=== PATIENT | female | born 1985 | race Caucasian/White ===

== ENCOUNTER 2022-03-01 14:10 | Emergency (ER) | payer OTHER, SELFPAY ==
[2022-03-01 14:45] VITALS: BP 142/77; PULSE 77; RESP 18; TEMP 36.7; O2SAT 100
--- NOTE | 2022-03-01 14:52 | ED.UPPEXIN ---
HPI - Extremity Injury (Upper) General Chief Complaint: Extremity Injury, Upper Stated Complaint: pain management rt wrist injury pending surgery Time Seen by Provider: 03/01/22 14:52 Source: patient Mode of arrival: ambulatory Limitations: no limitations History of Present Illness HPI narrative: 36-year-old female with reportedly broken right wrist presenting for complaint of wrist pain since injury one week ago. She states she broke the wrist while snowboarding in [facility], was seen in the ER and placed in splint/sling. Given Rx hydrocodone and zofran, also taking motrin. Unable to get into ortho at [facility] until 03/07. Requesting medication for the wrist pain until she can be seen. Denies numbness, tingling or weakness of the fingers or extremity. Rates pain 10/17. Provided dc paperwork. Related Data Home Medications Medication Instructions Recorded Confirmed hydrocodone 5 mg-acetaminophen 325 5 tablet PO PRN PRN Pain 03/01/22 03/01/22 mg tablet ondansetron 4 mg disintegrating 4 mg PO PRN PRN Nausea 03/01/22 03/01/22 tablet Allergies Allergy/AdvReac Type Severity Reaction Status Date / Time No Known Allergies Allergy Verified 03/01/22 14:48 Review of Systems Review of Systems: CONSTITUTIONAL: Denies body aches, fever, chills EYES: Denies visual changes ENT: Denies rhinorrhea, congestion CARDIOVASCULAR: Denies chest pain, palpitations, or edema. RESPIRATORY: Denies cough or dyspnea. GASTROINTESTINAL: Denies abdominal pain, nausea, vomiting, or diarrhea. SKIN: Denies rash, itching, or wounds. MUSCULOSKELETAL: per hpi NEUROLOGIC: Denies headache, numbness, tingling, or weakness. PSYCH: Denies depression or anxiety. All systems reviewed & are unremarkable except as noted in HPI and below PMFSH Comments At time of signature, I have reviewed and agree with nursing past medical, surgical, social and family history unless otherwise noted. Please see nursing chart for further information. There is no relevant family history pertinent to the presenting complaint Exam Narrative: GENERAL: Well-appearing CHEST: Speaks in full sentences. No respiratory distress. HEART: Regular rate and rhythm. Normal and equal peripheral pulses. EXTREMITIES: RUE with sling and splint in place. Fingers with normal strength and sensation. skin warm, dry, pink. Capillary refill less than 3 seconds. SKIN: Warm, dry, no rash. NEURO: Alert and oriented x3. PSYCH: Normal mood and affect Course Course Emergency Course: Patient is aware of diagnosis, understands and agrees to treatment plan. Anticipatory guidance given. Patient agrees to follow-up as directed and is aware of reasons to seek care at the emergency department. Portions of this record may have been created with voice recognition software Level of Care: Express Care Visit Vital Signs Vital signs: Vital Signs Temperature 98.1 F 03/01/22 14:45 Pulse Rate 77 03/01/22 14:45 Respiratory Rate 18 03/01/22 14:45 Blood Pressure 142/77 H 03/01/22 14:45 Pulse Oximetry 100 03/01/22 14:45 Oxygen Delivery Room Air 03/01/22 14:45 Temperature 98.1 F 03/01/22 14:45 Pulse Rate 77 03/01/22 14:45 Respiratory Rate 18 03/01/22 14:45 Blood Pressure 142/77 H 03/01/22 14:45 Pulse Oximetry 100 03/01/22 14:45 Oxygen Delivery Room Air 03/01/22 14:45 Reviewed MDM - Extremity Injury (Upper) MDM Narrative Medical decision making narrative: Patient is informed we do not routinely provide Rx for narcotics. She is advised to contact [facility] for possible consult prior to her scheduled appointment. At this time will provide Rx hydrocodone #7 with ibuprofen. patient is agreeable. Advised supportive measures and signs/symptoms to go to the ER. Pt is appropriate for outpt treatment and f/u. Differential Diagnosis Differential diagnosis: Likely fracture of wrist Discharge Plan Discharge Clinical Impression: Acute wrist pain Patient
== END 2022-03-01 15:14 | disposition home or self-care (01) ==
PROVIDERS: Emergency Provider Nurse Practitioner Family
DX: M25.531 Pain in right wrist (principal)
CPT/HCPCS: 99203; G0463

== ENCOUNTER 2022-05-07 09:00 | Outpatient (RCR) | payer OTHER, SELFPAY ==
--- NOTE | 2022-03-28 09:09 | OTOPEVAL1 ---
Assessment and note entered by Deepak Ashraf, JOHANA/Babatunde, CHT Evaluation Information Assessment Status Evaluation Diagnosis Right distal radius fracture Subjective Information Patient is a right hand dominant female who sustained a distal radius fracture while snowboarding. 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 She has been completing ADL tasks and driving with her left hand. Has been able to do some light tasks such as writing and typing with the right hand. Comes in wearing a removable, custom-fabricated wrist cock up orthosis. Reported Pain Level Additional Pain Score Comments No pain at rest. Tends to get sore at the end of the day. Takes Motrin PRN. Assessment OT Clinical Summary Patient is referred to outpatient hand therapy following a distal radius fracture and ORIF as well as carpal tunnel release on the right UE. She presents with functional limitations due to stiffness, soft tissue tightness, and soreness with movement. Skilled OT indicated to progress HEP, for thermal modalities, manual therapy, and functional therapeutic activities to facilitate optimal functional use of the right UE. Plan of Care Interventions Therapeutic Exercise,Manual Therapy,Therapeutic Activities,Hot Pack/Cold Pack,Paraffin OT Services Indicated Yes Treatment Frequency and 1x/week for 8 weeks Duration These treatments will address the objective and functional deficits as defined above. The patient will be advanced safely and appropriately in order for the patient to progress towards his/her prior level of function. Additional exercises will be introduced and as well as a comprehensive home exercise program upon discharge, if needed, ?to ensure carryover of functional gains achieved in the clinic. This treatment plan has been reviewed and agreement upon by the patient.
--- NOTE | 2022-04-18 12:49 | PCOTNOTE ---
Patient called and cancelled OT appointment today. She saw her ortho MD and then was seen by their clinic's therapists. Advised her that she didn't need to come in today if she was seen by their therapists and that we'd follow up next week.
--- NOTE | 2022-04-26 10:13 | OTOPPROGNS ---
Assessment and note entered by Deepak Ashraf, OTR/Babatunde, CHT Evaluation Information Assessment Status Progress Diagnosis Right distal radius fracture Subjective Information Patient is a right hand dominant female who sustained a distal radius fracture while snowboarding. She is now able to use the right hand to eat, chop lettuce, wash her hair, and lift and carry light objects. She reports residual deficits with lifting heavy items and with some dexterity. She is now cleared to wean off the splint and no longer has any restrictions. Assessment OT Clinical Summary Debbie is making good progress toward goals. Functional ROM and strength is improving. She comes today with new orders stating no restrictions. Upgraded her HEP to strengthening today. Continued skilled OT indicated to progress HEP, for thermal modalities for stiffness, and functional therapeutic activities to facilitate optimal functional use of the right UE. Plan of Care Interventions Therapeutic Exercise,Manual Therapy,Therapeutic Activities,Hot Pack/Cold Pack,Paraffin OT Services Indicated Yes Treatment Frequency and Plan to continue with 2 more sessions. 1x/week. Duration Then assess for D/C. These treatments will address the objective and functional deficits as defined above. The patient will be advanced safely and appropriately in order for the patient to progress towards his/her prior level of function. Additional exercises will be introduced and as well as a comprehensive home exercise program upon discharge, if needed, ?to ensure carryover of functional gains achieved in the clinic. This treatment plan has been reviewed and agreement upon by the patient.
--- NOTE | 2022-05-02 10:01 | PCOTNOTE ---
Patient called and cancelled OT tx this AM.
--- NOTE | 2022-05-07 09:30 | OTOPDC ---
Assessment and note entered by JOHANA Clark/Babatunde, CHT Evaluation Information Assessment Status Discharge Diagnosis Right distal radius fracture Subjective Information Patient is a right hand dominant female who sustained a distal radius fracture while snowboarding. She has been using the arm unrestricted x2 weeks. Reports good functional use with ADLs and lifting. Reported Pain Level Pain Score 0: Self Report Assessment OT Clinical Summary Debbie has met therapy goals. Functional ROM has returned to normal limits. Gross wrist and campus ambassador strength is WFL. She is currently independent with HEPs to continue to strengthen. No further skilled OT indicated at this time. Plan of Care OT Services Indicated No
== END 2022-06-11 11:47 | disposition home or self-care (01) ==
LOC: ANHOT 09:00
DX: M25.631 Stiffness of right wrist, not elsewhere classified (principal)
CPT/HCPCS: 97018; 97110; 97140; 97165

== ENCOUNTER 2023-03-15 19:04 | Emergency (ER) | payer OTHER, SELFPAY ==
--- NOTE | 2023-03-15 19:16 | ED.URI ---
HPI - URI/Sore Throat General Chief Complaint: Upper Respiratory Infection Stated Complaint: flu like symptoms Time Seen by Provider: 03/15/23 19:16 Source: patient Mode of arrival: ambulatory Limitations: no limitations History of Present Illness HPI Narrative: Christina is a 37-year-old female patient presenting to the clinic today with complaints of flu-like symptoms x4 days. She reports no known fever but has had some chills and body aches. Also reports some congestion. Denies any sore throat, chest pain, or shortness of breath. MD elicited complaint: nasal congestion Related Data Home Medications Medication Instructions Recorded Confirmed metformin 500 mg tablet,extended 500 mg PO DAILY 03/15/23 03/15/23 release 24 hr norethindrone 1 mg-ethinyl 1 tablet PO DAILY 03/15/23 03/15/23 estradiol 20 mcg (21)-iron 75 mg (7) tablet ([place] Fe 03/29 (28)) spironolactone 50 mg tablet 50 mg PO DAILY 03/15/23 03/15/23 Allergies Allergy/AdvReac Type Severity Reaction Status Date / Time No Known Allergies Allergy Verified 03/15/23 19:21 Review of Systems Review of Systems: Pertinent positives per HPI. Patient denies any fever, rash, headache, visual changes, dizziness, shortness of breath, chest pain, palpitations, nausea, vomiting, diarrhea, constipation, abdominal pain, or any urinary issues. PMFSH Comments At the time of my signature, I reviewed and agree with the nursing past medical, surgical, social, and family history. There is no relevant family history pertinent to the patient complaint. Exam Narrative: General: Well-developed, well nourished, in no apparent distress Head: Normocephalic, atraumatic Eyes: Pupils equally round and reactive to light bilaterally, EOM intact, sclera and conjunctive clear, no discharge, lids normal Ears: TMs intact and congested, ear canals clear, no drainage, grossly hearing normal. Nose: Nares patent, clear nasal discharge, no inflammation, no sinus tenderness. Mouth: Oral pharynx without lesions or masses, good dentition, MMM. Neck: Supple, trachea midline, no enlargement of anterior or posterior cervical nodes, no thyroid masses or goiter palpable. Cardio: Regular rate and rhythm, s1 and s2 normal, no murmur appreciated. Resp: Clear to auscultation bilaterally, no rhonchi, rales, wheezing or rubs Course Course Emergency Course: Portions of this record may have been created with voice recognition software. Level of Care: Express Care Visit Vital Signs Vital signs: Vital signs reviewed MDM - URI/Sore Throat MDM Narrative Medical decision making narrative: At the time of visit patient is resting comfortably on the exam table. Patient appears to be nontoxic. COVID and influenza testing was performed. Supportive measures were discussed with the patient and they voiced understanding discharge instructions and agrees to treatment plan. Return precautions reviewed Differential Diagnosis Differential diagnosis: Likely upper respiratory infection, otitis media, sinusitis, viral infection, bronchitis, influenza, pharyngitis and other (COVID) Discharge Plan Discharge Clinical Impression: Viral infection URI (upper respiratory infection) Qualifiers: URI type: unspecified URI Qualified Code(s): J06.9 - Acute upper respiratory infection, unspecified Patient Disposition: Home, Self-Care Condition: Stable Instructions: Antibiotic Form, Upper Respiratory Infection (ED), Viral Syndrome (ED) Additional Instructions: COVID and influenza testing was negative in the clinic today. May take DayQuil/NyQuil for cold/flu symptoms Increase fluids and stay well hydrated Tylenol/motrin for pain/fever Flonase and OTC antihistamines as directed Vicks vapor rub to open sinuses Sinus rinses for congestion Cepacol spray, cough drops, throat lozenges, warm tea with honey/lemon, gargle salt water to soothe throat BRAT diet for diarrhea Clear li
[2023-03-15 19:20] VITALS: BP 131/76; PULSE 79; RESP 18; TEMP 36.4; O2SAT 100
[2023-03-15 19:22] VITALS: BP 131/76; PULSE 79; RESP 18; TEMP 36.4; O2SAT 100
== END 2023-03-15 19:33 | disposition home or self-care (01) ==
PROVIDERS: Emergency Provider Nurse Practitioner Family
DX: B34.9 Viral infection, unspecified (principal); J06.9 Acute upper respiratory infection, unspecified; Z20.822 Contact with and (suspected) exposure to COVID-19; E28.2 Polycystic ovarian syndrome
CPT/HCPCS: 87426; 87804; 99213; C9803; G0463